=== PATIENT | female | born 1985 | race African-American/Black ===

== ENCOUNTER → 2017-01-09 | Outpatient (CLI) | payer BC | END | disposition home or self-care (01) | LOC: C.PAPS 11:37 | PROVIDERS: ATTEND Physician Assistant | DX: Z01.419 Encounter for gynecological examination (general) (routine) without abnormal findings (principal) ==

== ENCOUNTER → 2017-01-09 | Outpatient (CLI) | payer BC ==
[2017-01-11 02:03] LABS: CHLAMYDIA TRACH RNA*** NOT DETECTED (NOT DETECTED); GC (NEIS GONORRHOEAE)RNA** NOT DETECTED (NOT DETECTED)
== END | disposition home or self-care (01) ==
LOC: C.LAB1850 10:07
PROVIDERS: ATTEND Physician Assistant
DX: Z01.419 Encounter for gynecological examination (general) (routine) without abnormal findings (principal); Z11.3 Encounter for screening for infections with a predominantly sexual mode of transmission

== ENCOUNTER → 2018-01-13 | Outpatient (CLI) | payer BC ==
[2018-01-13 13:21] LABS: HEP C IGG 13 YRS+OLDER_RFLX NEG (NEG)
== END ==
LOC: C.LAB1850 10:06
PROVIDERS: ATTEND Physician Assistant
DX: Z01.419 Encounter for gynecological examination (general) (routine) without abnormal findings (principal); Z11.3 Encounter for screening for infections with a predominantly sexual mode of transmission

== ENCOUNTER → 2018-01-13 | Outpatient (CLI) | payer BC | LOC: C.PAPS 11:32 | PROVIDERS: ATTEND Physician Assistant | DX: Z01.419 Encounter for gynecological examination (general) (routine) without abnormal findings (principal) ==

== ENCOUNTER → 2018-03-12 | Outpatient (CLI) | payer BC | END | disposition home or self-care (01) | LOC: C.LAB1850 10:17 | PROVIDERS: ATTEND Internal Medicine | DX: Z13.220 Encounter for screening for lipoid disorders (principal) ==

== ENCOUNTER 2019-07-11 05:53 | Inpatient (IN) ==
[2019-07-11] MEDS ORDERED: OXYTOCIN 30 UNITS/500 ML BAG IV PRN ×2 (06:13→10:44)
[2019-07-11] MEDS ORDERED: BUPIVACAINE 0.25% 30 ML VIAL ONE (06:22)
[2019-07-11] MEDS ORDERED: fentaNYL 2MCG/ML ROPIV 1.25MG/ML 100 ML BAG EPI ONE (06:23)
[2019-07-11] MEDS ORDERED: fentaNYL citrate 100 MCG/2 ML VIAL ONE (06:23)
[2019-07-11] MEDS ORDERED: ePHEDrine sulfate 50 MG/ML AMP ONE (06:23)
[2019-07-11 06:30] LABS: Hematocrit (blood only) 40.4 % (37-47); Hemoglobin 14.6 g/dL (12.0-16.0); Mean Corpuscular Hemoglobin 33.3 pg (25-34); Mean Corpuscular Volume 92.2 fL (80-100); Platelet Count 195 K/uL (130-400); RDW Coefficient of Variation 12.6 % (11.5-14.5); RDW Standard Deviation 42.5 fL (36.4-46.3); Red Blood Count 4.38 M/uL (4.2-5.4); White Blood Count 13.87 K/uL (4.8-10.8)
[2019-07-11] MEDS: LACTATED RINGER'S 1,000 ML IV PRN ×2 (06:30→07:22)
[2019-07-11] MEDS ORDERED: PATIENT'S ALLERGY INFO NEEDS ENTERED SCH (06:30)
[2019-07-11 06:46] LABS: Mean Corpuscular Hgb Conc 36.1 g/dL (32-36)
--- NOTE | 2019-07-11 06:48 | Anesthesiology Consultation ---
Date of Service July 11, 2019 Assessment & Plan (1) Encounter for pre-operative examination: Chart Review Chart Review: Acceptable Risk for Labor Epidural History Height/Weight Height: 5 ft 5 in Weight: 75.735 kg Allergies Allergy/AdvReac Type Severity Reaction Status Date / Time No Known Drug Allergies AdvReac none Verified 07/11/19 06:05 Medications Home Medications Medication Instructions Recorded Confirmed Last Taken docosahexanoic acid 200 mg capsule 200 mg PO DAILY cap 05/25/19 07/11/19 07/10/19 08:00 Active Medications Generic Name Dose Route Start Last Admin Trade Name Freq PRN Reason Stop Dose Admin Lactated Ringer's 1,000 mls @ 125 mls/hr 07/11/19 06:13 07/11/19 06:30 Lr IV 07/13/19 06:12 125 mls/hr .Q8H PRN Administration L&D Protocol Protocol Past Medical History Medical History Encounter for routine gynecological examination (Resolved) Screening, , for anatomic survey (Resolved) History of migraine headaches History of molluscum contagiosum History of varicella Past Family History Family History Brother Asthma Sister Asthma Father Diabetes Dyslipidemia Mother Hypertension Endometriosis Psoriasis Past Surgical History Surgical History S/P foot surgery S/P wisdom tooth extraction Social History Smoking Status: Never smoker Hx Alcohol Use: No Hx Substance Use: No substance use type: does not use Physical Exam Vital Signs Last Vital Signs Temp 36.3 C L 07/11/19 06:08 Pulse 77 07/11/19 06:02 Resp 20 07/11/19 06:08 BP 133/75 07/11/19 06:02 Testing Laboratory Results 07/11/19 06:18
[2019-07-11] MEDS ORDERED: ONDANSETRON INJ 2 MG/ML 2 ML VIAL IV PRN (07:18)
[2019-07-11] MEDS ORDERED: NALOXONE HCL 1 MG in SODIUM CHLORIDE 0.9% 1000ML 1,000 ML IV PRN (07:18)
[2019-07-11] MEDS ORDERED: NALOXONE HCL 0.4 MG/1 ML VIAL/CARP IV PRN (07:18)
[2019-07-11] MEDS ORDERED: fentaNYL 2MCG/ML ROPIV 1.25MG/ML 100 ML BAG EPI PRN (07:18)
[2019-07-11] MEDS ORDERED: ePHEDrine sulfate 50 MG/ML AMP IV PRN (07:18)
--- NOTE | 2019-07-11 08:23 | History & Physical Report ---
Date of Service July 11, 2019 Assessment & Plan (1) Normal labor: IUP at 38+ weeks in active labor with SROM GBS (-) requesting epidural analgesia anticipate vaginal . Present on Admission?: Yes History of Present Illness Primary Care Provider: NO PCP Patient is a34 yo female EDC 07/23/19 who presents in active labor. No ROM but (+) bloody show. GBS (-) complicated by uterine fibroid that has remained stable through the . Allergies Allergy/AdvReac Type Severity Reaction Status Date / Time No Known Drug Allergies AdvReac none Verified 07/11/19 06:05 Home Medications Home Medications Medication Instructions Recorded Confirmed Type docosahexanoic acid 200 mg capsule 200 mg PO DAILY cap 05/25/19 07/11/19 History Patient History Medical History Encounter for routine gynecological examination (Resolved) Screening, , for anatomic survey (Resolved) History of migraine headaches History of molluscum contagiosum History of varicella Surgical History S/P foot surgery S/P wisdom tooth extraction Family History Brother Asthma Sister Asthma Father Diabetes Dyslipidemia Mother Hypertension Endometriosis Psoriasis Social History Preferred Language: Persian Beliefs That Will Affect Care: None marital status: Current Living Situation: Spouse Feels Safe at Home: Yes Safety Concerns: Feels Safe At This Time Smoking Status: Never smoker Hx Alcohol Use: No Hx Substance Use: No Review of Systems All systems reviewed & are unremarkable except as noted in HPI & below Physical Exam Constitutional: WD/WN, vitals as above Respiratory: normal respiratory effort, lungs clear to auscultation Cardiovascular: RRR, no murmur, no edema Gastrointestinal (Abdomen): normal bowel sounds, soft, nontender, no hepatosplenomegaly Psychiatric: A+Ox3, euthymic affect Genitourinary: OB Exam Abdomen: + vertex and + regular contractions Manual OB Exam: + cervical dilation 7 cm, + cervical effacement 100%, + station 0 and + amniotic fluid (SROM after admission) clear OB Exam Monitor Tracing: + external FHT monitor used, + external uterine monitor used, + category I and + normal FHT variability Results & Data Vital Signs (Past 12 Hours) Vital Signs Temp Pulse Resp BP Pulse Ox 07/11/19 08:13 70 100 07/11/19 08:08 70 99 07/11/19 08:03 75 100 07/11/19 07:58 73 100 07/11/19 07:53 74 100 07/11/19 07:51 76 121/79 07/11/19 07:48 73 100 07/11/19 07:43 76 99 07/11/19 07:38 91 H 100 07/11/19 07:35 81 128/74 07/11/19 07:33 76 125/73 97 07/11/19 07:31 86 119/78 07/11/19 07:30 83 126/72 07/11/19 07:28 89 98 07/11/19 07:27 80 123/67 07/11/19 07:26 89 118/74 07/11/19 07:23 87 122/74 97 07/11/19 07:21 90 118/65 07/11/19 07:19 76 119/63 07/11/19 07:18 95 H 96 07/11/19 07:17 97.5 F L 83 18 120/70 07/11/19 07:15 79 124/66 07/11/19 07:13 81 93 07/11/19 07:12 76 122/66 07/11/19 07:09 86 133/76 07/11/19 07:08 76 99 07/11/19 07:03 77 100 07/11/19 07:00 89 92 07/11/19 06:58 80 97 07/11/19 06:08 97.3 F L 20 07/11/19 06:02 77 133/75 Code Status & VTE Plan VTE Prophylaxis Plan VTE Prophylaxis will be ordered: No
[2019-07-11] MEDS ORDERED: HYDROCORTISONE ACETATE 25 MG SUPP PR PRN (10:44)
[2019-07-11] MEDS ORDERED: SUPERCREAM 0.870% 15 GM JAR EXT PRN (10:44)
[2019-07-11] MEDS ORDERED: BISACODYL 10 MG SUPP PR PRN (10:44)
[2019-07-11] MEDS ORDERED: ACETAMINOPHEN 325 MG TAB PO PRN (10:44)
[2019-07-11] MEDS ORDERED: OXYCODONE/ACETAMINOPHEN 5mg/325mg TAB PO PRN (10:44)
[2019-07-11] MEDS ORDERED: DIPHTHERIA/TETANUS/PERTUSSIS 0.5 ML SYR/VIAL IM ONE (10:44)
[2019-07-11] MEDS ORDERED: BENZOCAINE 20% AER SPR 82.5 GM CAN EXT PRN (10:44)
--- NOTE | 2019-07-11 11:37 | Delivery Summary ---
DATE OF OPERATION: 07/11/2019 The patient is a 34-year-old -[place] female G1, P0, EDC of 07/23/2019 who presented in active labor. She presented at 7 cm dilated. Membranes ruptured spontaneously for clear fluid. She received effective epidural analgesia. She progressed to full dilation and pushed effectively over intact perineum for delivery of a viable female . There was a tight nuchal cord, which could not be reduced and was cut and clamped prior to delivering the rest of the infant. The rest of the was delivered easily and placed on the mother's abdomen for further attention and drying and stimulation. The placenta was then expressed intact with a 3-vessel cord. The infant was taken to the baby bed for further stimulation and drying and at that point, there was spontaneous crying. The was moving all 4 limbs and was vigorous. A second-degree vaginal laceration was repaired with 3-0 chromic in the usual fashion. Estimated blood loss was 400 mL. bleeding was controlled with dilute Pitocin. I attest to the content of the Intraoperative Record and any orders documented therein. Any exception s are noted below.
--- NOTE | 2019-07-11 12:35 | Anesthesia Procedure Note ---
Date of Service July 11, 2019 Anesthesia Post Epidural Note Vital Signs Vital Signs: Temp Pulse Resp BP Pulse Ox 98.6 F 66 18 119/66 96 07/11/19 10:55 07/11/19 12:20 07/11/19 12:10 07/11/19 12:20 07/11/19 10:18 Notes Mental Status: alert / awake / arousable and participated in evaluation Nausea / Vomiting: adequately controlled Pain: adequately controlled Airway Patency, RR, SpO2: stable & adequate BP & HR: stable & adequate Hydration State: stable & adequate Neuraxial Anesthesia: was administered and sensory block is resolving Anesthetic Complications: no major complications apparent and Pt Satisfied with anesthetic care Epidural: Removed without complications and With tip intact
[2019-07-11] MEDS: IBUPROFEN 600 MG TAB PO PRN ×2 (20:05→23:45)
[2019-07-11] MEDS: DOCUSATE SODIUM 100 MG CAP PO SCH (20:05)
[2019-07-12] MEDS: IBUPROFEN 600 MG TAB PO PRN ×5 (04:06→23:01)
--- NOTE | 2019-07-12 06:00 | Obstetrical Progress Note ---
Date of Service <Angelika Ly - Last Filed: 07/12/19 06:46> July 12, 2019 Assessment & Plan <Angelika Ly DO - Last Filed: 07/12/19 06:46> (1) Encounter for care and examination after delivery: 34 yo F PPD #1, doing well and without complaints. - PPD #1 - Feels well, ambulating well, voiding well. - Will continue routine care. - Following d/c will have f/u in 6 weeks. Day #:: 1 Subjective <Angelika Ly - Last Filed: 07/12/19 06:46> Lilia is a 34 yo female ; PPD # 1 following spontaneous vaginal delivery at 38w2d; doing well this AM; no abdominal cramping/pain; voiding well, passing gas but no BM; tolerating meals overnight, able to ambulate some within the room. Some intermittent spotting this morning but improved from yesterday. Review of Systems Constitutional: denies fever, chills, sweats, headache Respiratory: denies SOB, difficulty breathing Cardiac: denies CP, chest palpitations, chest pressure Breast: denies breast pain : denies dysuria Physical Exam <Angelika Ly - Last Filed: 07/12/19 06:46> General: patient is alert and oriented, in NAD Cardiac: +S1/S2, no murmurs rubs or gallops Respiratory: lungs CTA b/l, anteriorly and posteriorly, no wheezes rales or rhonchi, no increased work of breathing, symmetric chest rise, no respiratory distress Abdomen: soft, NT, +bowel sounds Uterus: uterine fundus firm, palpable 2 cm below the umbilicus Lower Extremities: no LE edema or swelling, no deep calf pain, Emily's sign negative b/l Results & Data <Angelika Ly - Last Filed: 07/12/19 06:46> Vital Signs (Past 12 Hours) Vital Signs Temp Pulse Resp BP Pulse Ox 07/12/19 04:05 37.2 C 78 18 118/83 07/11/19 23:17 36.9 C 75 18 123/73 100 07/11/19 19:00 36.9 C 79 18 122/71 99 Laboratory Results Laboratory Results - last 24 hr 07/11/19 06:18 WBC 13.87 H RBC 4.38 Hgb 14.6 Hct 40.4 MCV 92.2 MCH 33.3 MCHC 36.1 H RDW Std Deviation 42.5 RDW Coeff of Vanessa 12.6 Plt Count 195 MPV 10.0 Medications Administered Current Medications Acetaminophen (Tylenol) 650 mg PO Q6H PRN PRN Reason: Pain/MORGAN/Fever Stop: 08/10/19 10:43 Benzocaine (Dermoplast Pain Relieving [place]) 1 appln EXT PRN PRN PRN Reason: Perineal Discomfort Stop: 08/10/19 10:43 Bisacodyl (Dulcolax) 5 mg PO 1999 [facility] Stop: 07/12/19 20:01 Bisacodyl (Dulcolax) 10 mg MD DAILY PRN PRN Reason: No BM on 2nd post- day Stop: 08/10/19 10:43 Cocaine HCl (Supercream 0.870%) 1 gm EXT BID PRN PRN Reason: Hemorrhoidal Inflammation Stop: 07/25/19 10:43 Docusate Sodium (Colace) 100 mg PO DAILY@, [facility] Stop: 08/10/19 20:59 Last Admin: 07/11/19 20:05 Dose: 100 mg Documented by: Hydrocortisone (Anusol Hc) 25 mg MD BID PRN PRN Reason: Hemorrhoidal Inflammation Stop: 08/10/19 10:43 Lactated Ringer's (Lr) 1,000 mls @ 125 mls/hr IV .Q8H PRN; Protocol PRN Reason: L&D Protocol Stop: 07/13/19 06:12 Last Infusion: 07/11/19 12:56 Dose: 0 mls/hr Documented by: Oxytocin (Pitocin) 30 units in 500 mls @ 333.333 mls/hr IV .Q1H30M PRN; Protocol PRN Reason: Bleeding Control Stop: 08/10/19 10:43 Ibuprofen (Motrin) 600 mg PO Q4H PRN PRN Reason: Pain/MORGAN/Cramping/Fever Stop: 08/10/19 10:43 Last Admin: 07/12/19 04:06 Dose: 600 mg Documented by: Oxycodone/Acetaminophen (Percocet 5mg/325mg) 1 tab PO Q4H PRN PRN Reason: Pain not relieved by... Stop: 07/25/19 10:43 Prenat Multivit/Sponsorship Coordinator/Iron/Folic Ac ( Vitamin) 1 tab PO DAILY@08 [facility]O Stop: 08/11/19 07:59 <Kimberly Jarrett MD, FACOG - Last Filed: 07/12/19 07:26> Co-Signing Physician Notes Resident Physician Supervision Note: I interviewed and examined the patient. Discussed with Dr. Ly and agree with findings and plan as documented in the note. Any exceptions or clarifications are listed here: [None] Documented By: Kimberly Jarrett MD, FACOG Resident Activity Tracking <Angelika Ly DO - Last Filed: 07/12/19 06:46> Resident Involvement: Resident Care Provided Care Provided: Adult Hospital Medicine
[2019-07-12] MEDS: PRENATAL VITAMIN 1 TAB PO SCH (07:54)
[2019-07-12] MEDS: DOCUSATE SODIUM 100 MG CAP PO SCH ×2 (07:54→20:29)
[2019-07-12 08:58] LABS: Hematocrit (blood only) 36.6 % (37-47); Hemoglobin 12.9 g/dL (12.0-16.0); Mean Corpuscular Hgb Conc 35.2 g/dL (32-36); Mean Corpuscular Volume 93.6 fL (80-100); Mean Platelet Volume 10.4 fL (7.4-10.4); Platelet Count 197 K/uL (130-400); RDW Coefficient of Variation 12.8 % (11.5-14.5); RDW Standard Deviation 43.6 fL (36.4-46.3); Red Blood Count 3.91 M/uL (4.2-5.4); White Blood Count 11.29 K/uL (4.8-10.8)
[2019-07-12] MEDS ORDERED: BISACODYL 5 MG TABEC PO SCH (20:00)
[2019-07-13] MEDS: IBUPROFEN 600 MG TAB PO PRN (03:06)
--- NOTE | 2019-07-13 06:02 | Obstetrical Progress Note ---
Date of Service <Angelika Ly DO - Last Filed: 07/13/19 06:43> July 13, 2019 Assessment & Plan <Angelika Ly DO - Last Filed: 07/13/19 06:43> (1) Encounter for care and examination after delivery: 34 yo F PPD #2, doing well and without complaints this morning. - PPD #2 - Feels well, ambulating well, voiding well. - For d/c today. - Following d/c will have f/u in 6 weeks. - Blood type A+, Rubella immune. Day #:: 2 Subjective <Angelika Ly - Last Filed: 07/13/19 06:43> Lilia is a 34 yo female ; PPD # 2 following spontaneous vaginal delivery at 38w2d; doing well this AM; no abdominal cramping/pain; voiding well, passing gas but no BM; tolerating meals overnight, able to ambulate some within the devora m. Some intermittent spotting this morning but improved from yesterday. Review of Systems Constitutional: denies fever, chills, sweats, headache Respiratory: denies SOB, difficulty breathing Cardiac: denies CP, chest palpitations, chest pressure Breast: denies breast pain : denies dysuria Physical Exam <Angelika Ly DO - Last Filed: 07/13/19 06:43> General: patient is alert and oriented, in NAD Cardiac: +S1/S2, no murmurs rubs or gallops Respiratory: lungs CTA b/l, anteriorly and posteriorly, no wheezes rales or rhonchi, no increased work of breathing, symmetric chest rise, no respiratory distress Abdomen: soft, NT, +bowel sounds Uterus: uterine fundus firm, palpable 4 cm below the umbilicus Lower Extremities: no LE edema or swelling, no deep calf pain, Emily's sign negative b/l Results & Data <Angelika Ly DO Zepeda Last Filed: 07/13/19 06:43> Vital Signs (Past 12 Hours) Vital Signs Temp Pulse Resp BP Pulse Ox 07/12/19 23:05 36.7 C 75 16 111/71 99 07/12/19 19:35 36.7 C 70 16 123/78 100 Laboratory Results Laboratory Results - last 24 hr 07/12/19 08:44 WBC 11.29 H RBC 3.91 L Hgb 12.9 Hct 36.6 L MCV 93.6 MCH 33.0 MCHC 35.2 RDW Std Deviation 43.6 RDW Coeff of Vanessa 12.8 Plt Count 197 MPV 10.4 Medications Administered Current Medications Acetaminophen (Tylenol) 650 mg PO Q6H PRN PRN Reason: Pain/MORGAN/Fever Stop: 08/10/19 10:43 Benzocaine (Dermoplast Pain Relieving [place]) 1 appln EXT PRN PRN PRN Reason: Perineal Discomfort Stop: 08/10/19 10:43 Last Admin: 07/12/19 08:07 Dose: 1 appln Documented by: Bisacodyl (Dulcolax) 10 mg MT DAILY PRN PRN Reason: No BM on 2nd post- day Stop: 08/10/19 10:43 Cocaine HCl (Supercream 0.870%) 1 gm EXT BID PRN PRN Reason: Hemorrhoidal Inflammation Stop: 07/25/19 10:43 Docusate Sodium (Colace) 100 mg PO DAILY@08,21 [facility] Stop: 08/10/19 20:59 Last Admin: 07/12/19 20:29 Dose: 100 mg Documented by: Hydrocortisone (Anusol Hc) 25 mg MT BID PRN PRN Reason: Hemorrhoidal Inflammation Stop: 08/10/19 10:43 Lactated Ringer's (Lr) 1,000 mls @ 125 mls/hr IV .Q8H PRN; Protocol PRN Reason: L&D Protocol Stop: 07/13/19 06:12 Last Infusion: 07/11/19 12:56 Dose: 0 mls/hr Documented by: Oxytocin (Pitocin) 30 units in 500 mls @ 333.333 mls/hr IV .Q1H30M PRN; Protocol PRN Reason: Bleeding Control Stop: 08/10/19 10:43 Ibuprofen (Motrin) 600 mg PO Q4H PRN PRN Reason: Pain/MORGAN/Cramping/Fever Stop: 08/10/19 10:43 Last Admin: 07/13/19 03:06 Dose: 600 mg Documented by: Oxycodone/Acetaminophen (Percocet 5mg/325mg) 1 tab PO Q4H PRN PRN Reason: Pain not relieved by... Stop: 07/25/19 10:43 Prenat Multivit/[place]/Iron/Folic Ac ( Vitamin) 1 tab PO DAILY@08 [facility] Stop: 08/11/19 07:59 Last Admin: 07/12/19 07:54 Dose: 1 tab Documented by: <Serena Mckeon DO - Last Filed: 07/13/19 08:20> Co-Signing Physician Notes Resident Physician Supervision Note: I was present with Dr. Claudio during the history and exam. I discussed the case with the resident and agree with the findings and plan as documented in the note. Any exceptions or clarifications are listed here: PPD#2 doing well .DC home. Instructions reviewed. Documented By: Serena Mckeon DO Resident Activity Tracking <Angelika Ly DO - Last Filed: 07/13/19 06:43> Resident Involvement: Resident Care Provided Care Provided: Adult Hospital Medicine
[2019-07-13 06:43] LABS: Hematocrit (blood only) 35.9 % (37-47); Hemoglobin 12.3 g/dL (12.0-16.0)
[2019-07-13] MEDS: PRENATAL VITAMIN 1 TAB PO SCH (08:19)
[2019-07-13] MEDS: DOCUSATE SODIUM 100 MG CAP PO SCH (08:19)
== END 2019-07-13 13:30 | disposition home or self-care (01) | DRG 807 ==
LOC: OPB 05:53 → 4S1 05:58 → 4S2 14:34